=== PATIENT | female | born 1955 | race Caucasian/White ===

== ENCOUNTER → 2016-11-24 | Day surgery (SDC) | payer BC ==
[2016-11-17 13:07] VITALS: BMI 22.0
[~2016-11-24] VITALS: Ht 154.9 cm; Wt 54.5 kg
[~2016-11-24] MED LIST: AZEL0.056 NAE; CALC-440 PO; ESOM1CAP34 PO; ESTR10TA PO; FEXO1TAB54 PO; FRCT/ PO; LEVA45AE INH; LIDOCAINE HCL 2% 2 ML VIAL (20MG/ML) ONE; MIDAZOLAM HCL 1 MG/ML 2ML VIAL ONE; MULT-506 PO; ONDANSETRON INJ 2 MG/ML 2 ML VIAL ONE; PROPOFOL IV EMULSION 10 MG/ML 20 ML VIAL IV ONE; RIZA10TA18 PO; SNG10 PO; SODIUM CHLORIDE 0.9% 500ML 500 ML IV ONE; SYN125 PO; XNX25 PO
[2016-11-24 10:53] VITALS: Ht 154.9 cm; Wt 54.5 kg
[2016-11-24 11:02] VITALS: TEMP 36.6
--- NOTE | 2016-11-24 11:49 | Endo History and Physical ---
History & Physical Date of Service: Nov 24, 2016. Chief Complaint: ESOPHAGEAL REFLUX Referring Physician: DR. HERNANDEZ History of Present Illness 61 yo CF who presents for EGD secondary to GERD. Past Medical History Asthma, Reflux, Thyroid Disease Past Surgical History Hx Cardiac Surgery: No Hx Internal Defibrillator: No Hx Pacemaker: No Hx Abdominal Surgery: Yes (D&C) Hx of Implantable Prosthesis: No Hx Post-Op Nausea and Vomiting: No Hx Cancer Surgery: Yes (SCC REMOVAL FROM BACK) Hx Thoracic Surgery: No Hx Orthopedic: Yes (RT ANKLE SURGERY WITH HARDWARE, RT WRIST DEQUAVARIAN'S TENDON) Hx Urinary Tract Surgery: No Family History Colon CA, Esophogeal CA Social History Smoking Status: Never Smoker Hx Substance Use: No Hx Alcohol Use: Yes (1-2 GLASS WINE/NIGHT) Allergies Coded Allergies: Sulfa Drugs (Verified Allergy, Mild, UNKNOWN - HAPPENED CHILD, 11/24/16) Uncoded Allergies: ENVIRONMENTAL (Allergy, Unknown, ITCHING AND RUNNY NOSE, SNEEZING, 11/17/16) Current Medications Reported Home Medications Medications Dose Route/Sig Max Daily Dose Days Date Category Dose Instructions Levalbuterol Tartrate Hfa (Levalbuterol Tartrate) 45 Mcg/Act Aer 2 Puffs INH Q4H PRN 11/17/16 Reported Azelastine HCl 0.15 % Spr 1 [place] FAISAL HS 11/17/16 Reported Melania Allergy (Fexofenadine Hcl) 60 Mg Tab 1 Tab PO QAM 11/17/16 Reported Calcium Citrate + D3 (Calcium Citrate-Vitamin D) 1 Tab Tab 2 Tabs PO LUNCH 09/26/16 Reported Alprazolam 0.25 Mg Tab 0.25 Mg PO HS 09/26/16 Reported Montelukast Sodium (Montelukast Sod) 10 Mg Tab 10 Mg PO HS 09/26/16 Reported Synthroid (Levothyroxine Sodium) 125 Mcg Tab 125 Mcg PO QAM 09/26/16 Reported Esomeprazole Magnesium 40 Mg Cap 40 Mg PO BID 09/26/16 Reported Fioricet (Acetaminophen/Butalbital/Caffeine) 1 Ea Tab 1-2 Tabs PO UD PRN 09/26/16 Reported TAKE 1 OR 2 TABLETS EVERY 4 HOURS NEEDED FOR HEADACHE. DO NOT EXCEED 6 TABLETS IN 24 HOURS. Vagifem (Estradiol Vaginal) 10 Mcg Tab 10 Mcg PO WK 04/19/13 Reported Maxalt (Rizatriptan Benzoate) 10 Mg Tab 10 Mg PO UD PRN 09/19/10 Reported TAKE 1 TABLET AT ONSET OF MIGRAINE, MAY REPEAT EVERY 2 HOURS NEEDED. MAXIUMUM OF 3 TABLETS IN 24 HOURS. Multivitamin (Multivitamins) Tab 1 Tab PO LUNCH 09/19/10 Reported Vital Signs Weight (Kilograms): 54.55 Height (Feet): 5 Height (Inches): 1 Date Time Temp Pulse Resp B/P Pulse Ox O2 Delivery O2 Flow Rate FiO2 11/24/16 11:02 36.6 60 20 129/74 99 Room Air Physical Exam General Appearance: WD/WN, no apparent distress Respiratory/Chest: Auscultation: breath sounds normal Cardiovascular: Heart Auscultation: RRR Abdomen: Bowel Sounds: normal Inspection & Palpation: soft, non-distended, no tenderness, guarding & rebound Assessment and Plan Assessment: 61 yo CF who presents for EGD secondary to GERD. Plan: Proceed with EGD.
--- NOTE | 2016-11-24 12:04 | Discharge Instructions ---
Endoscopy Patient Instructions Date / Procedure(s) Performed Nov 24, 2016. EGD Allergy Information Coded Allergies: Sulfa Drugs (Verified Allergy, Mild, UNKNOWN - HAPPENED CHILD, 11/24/16) Uncoded Allergies: ENVIRONMENTAL (Allergy, Unknown, ITCHING AND RUNNY NOSE, SNEEZING, 11/17/16) Discharge Date / Findings Nov 24, 2016. Esophageal biopsies Medication Instructions OK to resume all medications today as prescribed. Reported Home Medications Medications Dose Route/Sig Max Daily Dose Days Date Category Dose Instructions Levalbuterol Tartrate Hfa (Levalbuterol Tartrate) 45 Mcg/Act Aer 2 Puffs INH Q4H PRN 11/17/16 Reported Azelastine HCl 0.15 % Spr 1 [place] FAISAL HS 11/17/16 Reported Melania Allergy (Fexofenadine Hcl) 60 Mg Tab 1 Tab PO QAM 11/17/16 Reported Calcium Citrate + D3 (Calcium Citrate-Vitamin D) 1 Tab Tab 2 Tabs PO LUNCH 09/26/16 Reported Alprazolam 0.25 Mg Tab 0.25 Mg PO HS 09/26/16 Reported Montelukast Sodium (Montelukast Sod) 10 Mg Tab 10 Mg PO HS 09/26/16 Reported Synthroid (Levothyroxine Sodium) 125 Mcg Tab 125 Mcg PO QAM 09/26/16 Reported Esomeprazole Magnesium 40 Mg Cap 40 Mg PO BID 09/26/16 Reported Fioricet (Acetaminophen/Butalbital/Caffeine) 1 Ea Tab 1-2 Tabs PO UD PRN 09/26/16 Reported TAKE 1 OR 2 TABLETS EVERY 4 HOURS NEEDED FOR HEADACHE. DO NOT EXCEED 6 TABLETS IN 24 HOURS. Vagifem (Estradiol Vaginal) 10 Mcg Tab 10 Mcg PO WK 04/19/13 Reported Maxalt (Rizatriptan Benzoate) 10 Mg Tab 10 Mg PO UD PRN 09/19/10 Reported TAKE 1 TABLET AT ONSET OF MIGRAINE, MAY REPEAT EVERY 2 HOURS NEEDED. MAXIUMUM OF 3 TABLETS IN 24 HOURS. Multivitamin (Multivitamins) Tab 1 Tab PO LUNCH 09/19/10 Reported Provider Instructions Activity Restrictions - No exercising or heavy lifting for 24 hours. - Do not drink alcohol the day of the procedure. - Do not drive a car or operate machinery until the day after the procedure. - Do not make any important decisions or sign important papers in 24 hours after the procedure. Following Day: - Return to full activity which may include returning to work/school. Diet Start your diet with liquids and light foods (jello, soup, juice, toast). Then eat your usual diet if not nauseated. Treatment For Common After Affects For mild abdominal pain, bloating, or excessive gas: - Rest - Eat lightly - Lie on right side Follow-Up Information Follow-up with DR. HERNANDEZ as scheduled Anesthesia Information What You Should Know You have had a procedure that required some medicine to reduce anxiety and discomfort. This treatment is called moderate sedation. After receiving the treatment, you may be sleepy, but you will be able to breathe on your own. The effects of the treatment may last for several hours. Follow these instructions along with Activity/Diet recommendations noted above: * Do NOT do anything where dizziness or clumsiness would be dangerous. * Rest quietly at home today, then you can be up and about tomorrow. * Have a responsible person stay with you the rest of today. * You may have had an I.V. today. If so, you may take the dressing off later today. Recommendations Call your doctor if: * Trouble breathing * Continuous vomiting for more than 24 hours * Temperature above 101 degrees * Severe abdominal pain or bloating * Pain not relieved by pain medicine ordered * There is increased drainage or redness from any incision * A large amount of rectal bleeding greater than 2-3 tablespoons. (If you had a polyp/s removed or have hemorrhoids, a small amount of blood - from the rectum is to be expected.) * You have any unanswered questions or concerns. IN THE EVENT OF A SERIOUS EMERGENCY, GO TO THE NEAREST EMERGENCY ROOM Your discharge instructions were prepared by provider Stanley Hurt. Patient Instructions Signature Page Akila Alejandra Patient (or Guardian) Signature/Date: I have read and understand the instructions given to me by my caregivers. Caregiver/RN/Doctor Signature/Date: The above-named patient and/or guardian has received patient instructions on this date. + Original Patient Signature Page (only) stays with chart. Please make copy for patient.
--- NOTE | 2016-11-24 12:07 | GI REPORT ---
Procedure Date: 11/24/2016 11:32 AM Procedure: Upper GI endoscopy Indications: Gastro-esophageal reflux disease Medicines: Monitored Anesthesia Care Complications: No immediate complications. Estimated Blood Loss: Estimated blood loss: none. Procedure: Pre-Anesthesia Assessment: - Prior to the procedure, a History and Physical was performed, and patient medications and allergies were reviewed. The patient's tolerance of previous anesthesia was also reviewed. The risks and benefits of the procedure and the sedation options and risks were discussed with the patient. All questions were answered, and informed consent was obtained. Prior Anticoagulants: The patient has taken no previous anticoagulant or antiplatelet agents. ASA Grade Assessment: II - A patient with mild systemic disease. After reviewing the risks and benefits, the patient was deemed in satisfactory condition to undergo the procedure. After obtaining informed consent, the endoscope was passed under direct vision. Throughout the procedure, the patient's blood pressure, pulse, and oxygen saturations were monitored continuously. The On-site loaner was introduced through the mouth, and advanced to the second part of duodenum. The upper GI endoscopy was accomplished without difficulty. The patient tolerated the procedure well. Findings: The Z-line was irregular. Biopsies were taken with a cold forceps for histology. The stomach was normal. The examined duodenum was normal. Impression: - Z-line irregular. Biopsied. - Normal stomach. - Normal examined duodenum. Recommendation: - Resume previous diet. - Continue present medications. - Await pathology results. - Return to primary care physician as previously scheduled. Stanley Hurt DO 11/24/2016 12:07:13 PM This report has been signed electronically. Note Initiated On: 11/24/2016 11:32 AM I attest to the content of the Intraoperative Record and orders documented therein, exceptions below
[2016-11-24 12:31] VITALS: BP 127/77; PULSE 60; O2SAT 98
--- NOTE | 2016-11-24 12:47 | Anesthesiology Progress Note ---
Anesthesia Post Op Note Date & Time Nov 24, 2016 at 12:47 Vital Signs Pain Intensity: 0 Vital Signs Past 12 Hours Date Time Temp Pulse Resp B/P Pulse Ox O2 Delivery O2 Flow Rate FiO2 11/24/16 12:31 60 20 127/77 98 Room Air 11/24/16 12:16 59 20 133/73 97 Room Air 11/24/16 12:01 65 20 104/58 97 Room Air 11/24/16 11:02 36.6 60 20 129/74 99 Room Air Notes Mental Status: alert / awake / arousable, participated in evaluation Pt Amnestic to Procedure: Yes Nausea / Vomiting: adequately controlled Pain: adequately controlled Airway Patency, RR, SpO2: stable & adequate BP & HR: stable & adequate Hydration State: stable & adequate Anesthetic Complications: no major complications apparent
== END | disposition home or self-care (01) ==
LOC: C.GI 10:49
PROVIDERS: ATTEND Internal Medicine
DX: K22.70 Barrett's esophagus without dysplasia (principal); K21.0 Gastro-esophageal reflux disease with esophagitis; J45.909 Unspecified asthma, uncomplicated; E07.9 Disorder of thyroid, unspecified; Z80.0 Family history of malignant neoplasm of digestive organs; Z98.890 Other specified postprocedural states; Z88.2 Allergy status to sulfonamides

== ENCOUNTER → 2016-12-11 | Outpatient (CLI) | payer BC ==
[~2016-12-11] MED LIST changes: -LIDOCAINE HCL 2% 2 ML VIAL (20MG/ML) ONE; -MIDAZOLAM HCL 1 MG/ML 2ML VIAL ONE; -ONDANSETRON INJ 2 MG/ML 2 ML VIAL ONE; -PROPOFOL IV EMULSION 10 MG/ML 20 ML VIAL IV ONE; -SODIUM CHLORIDE 0.9% 500ML 500 ML IV ONE
--- NOTE | 2016-12-12 12:25 | MAMMOGRAPHY REPORT ---
BILATERAL DIGITAL SCREENING MAMMOGRAM TOMOSYNTHESIS WITH CAD: 12/11/2016 CLINICAL HISTORY: Routine screening. Patient has no complaints. TECHNIQUE: Breast tomosynthesis in addition to standard 2D mammography was performed. Current study was also evaluated with a Computer Aided Detection (CAD) system. COMPARISON: Comparison is made to exams dated: 12/01/2015 mammogram, 12/10/2014 mammogram, 11/30/2014 mammogram, 12/10/2014 ultrasound, 11/22/2012 mammogram - [facility], and 11/03/2008. BREAST COMPOSITION: The tissue of both breasts is heterogeneously dense, which may obscure small ma sses. FINDINGS: The parenchymal pattern is unchanged. There are a few stable benign-appearing microcalci fications bilaterally. No developing mass, architectural distortion or cluster of suspicious microc alcifications is seen in either breast. IMPRESSION: ACR BI-RADS CATEGORY 2: BENIGN There is no mammographic evidence of malignancy. A 1 year screening mammogram is recommended. The p atient will receive written notification of the results. Approximately 10% of breast cancers are not detected with mammography. A negative mammographic repor t should not delay biopsy if a clinically suggestive mass is present. Preeti López M.D. ay/:12/11/2016 21:37:42 Product Marketing Director: Alicia MARCIAL)(Patrick)(BD), [facility] letter sent: Normal 1/2 BI-RADS Code: ACR BI-RADS Category 2: Benign
== END | disposition home or self-care (01) ==
LOC: C.MAMM 09:59
PROVIDERS: ATTEND Internal Medicine
DX: Z12.31 Encounter for screening mammogram for malignant neoplasm of breast (principal)

== ENCOUNTER → 2017-01-19 | Outpatient (CLI) | payer BC ==
[2017-01-19 12:21] LABS: BASO % 1.5 %; BASO ABS # 0.05 K/uL (0-0.2); COMPLETE YES; EOS % 3.8 %; HEMATOCRIT 40.4 % (37-47); LYMPH ABS # 1.65 K/uL (1.2-3.4); MEAN CELL VOLUME 87.3 fL (80-100); MEAN CORPUSCULAR HEMOGLOBIN 29.4 pg (25-34); MEAN CORPUSCULAR HGB CONC 33.7 g/dl (32-36); MEAN PLATELET VOLUME 10.1 fL (7.4-10.4); NEUT % 39.7 %; PLATELET COUNT 230 K/uL (130-400); RED BLOOD COUNT 4.63 M/uL (4.2-5.4); WHITE BLOOD COUNT 3.44 K/uL (4.8-10.8)
[2017-01-19 12:41] LABS: ALT/SGPT 23 U/L (12-78); BLOOD UREA NITROGEN 17 mg/dl (7-18); BUN/CREATININE RATIO 19.1 (10-20); CALCIUM 8.8 mg/dl (8.5-10.1); CARBON DIOXIDE 27 mmol/L (21-32); CHLORIDE 103 mmol/L (98-107); CHOLESTEROL 209 mg/dl (0-200); CREATININE 0.88 mg/dl (0.60-1.20); GLUCOSE 67 mg/dl (70-99); POTASSIUM 4.3 mmol/L (3.5-5.1); SODIUM 138 mmol/L (136-145); TRIGLYCERIDES 91 mg/dl (0-150); VERY LOW DENSITY LIPOPROT CALC 18 mg/dl
[2017-01-19 12:52] LABS: ALB/GLOB RATIO 1.1 (0.9-2); ALKALINE PHOSPHATASE 76 U/L (45-117); AST/SGOT 22 U/L (15-37); CHOLESTEROL/HDL RATIO 2.4; HDL CHOLESTEROL 86 mg/dl; LDL CHOLESTEROL CALCULATED 105 mg/dl; THYROID STIMULATING HORMONE 0.152 uIu/ml (0.300-4.500)
== END | disposition home or self-care (01) ==
LOC: C.LAB1850 10:40
PROVIDERS: ATTEND Internal Medicine
DX: M85.80 Other specified disorders of bone density and structure, unspecified site (principal); Z13.220 Encounter for screening for lipoid disorders; E03.9 Hypothyroidism, unspecified

== ENCOUNTER → 2017-01-23 | Outpatient (CLI) | payer BC | END | disposition home or self-care (01) | LOC: C.LAB1850 09:39 | PROVIDERS: ATTEND Internal Medicine | DX: K20.9 Esophagitis, unspecified (principal) ==

== ENCOUNTER → 2017-02-15 | Outpatient (CLI) | payer BC | END | disposition home or self-care (01) | LOC: C.LAB1850 14:13 | PROVIDERS: ATTEND Internal Medicine | DX: E03.9 Hypothyroidism, unspecified (principal) ==

== ENCOUNTER → 2017-07-31 | Outpatient (CLI) | payer BC ==
--- NOTE | 2017-07-31 15:34 | DIAGNOSTIC IMAGING REPORT ---
MRI THE RIGHT SHOULDER NO CONTRAST CLINICAL HISTORY: Right shoulder pain. Weakness. Trauma in February 2017. COMPARISON STUDY: No previous studies for comparison. FINDINGS: Imaging was performed in the axial, sagittal, and coronal planes. There are no areas of marrow edema to indicate occult fracture or bone bruise. No labral tears are visualized. The bicipital tendon appears intact. There is supraspinatus and infraspinatus tendinopathy. There is no evidence of a full-thickness tear. IMPRESSION: 1. Supraspinatus and infraspinatus tendinopathy 2. No evidence of full-thickness rotator cuff tear 3. No evidence of bicipital tendon tear Electronically signed by: Bear Saunders M.D. 07/31/2017 3:32 PM Dictated Date/Time: 07/31/2017 3:29 PM
== END | disposition home or self-care (01) ==
LOC: C.MRIBC 14:33
PROVIDERS: ATTEND Internal Medicine
DX: M25.511 Pain in right shoulder (principal); E03.9 Hypothyroidism, unspecified; M75.91 Shoulder lesion, unspecified, right shoulder

== ENCOUNTER → 2017-10-26 | Outpatient (CLI) | payer OTHER | END | disposition home or self-care (01) | LOC: C.PAPS 16:39 | PROVIDERS: ATTEND Obstetrics & Gynecology | DX: Z01.419 Encounter for gynecological examination (general) (routine) without abnormal findings (principal) ==

== ENCOUNTER → 2017-12-12 | Outpatient (CLI) | payer OTHER ==
--- NOTE | 2017-12-12 15:56 | MAMMOGRAPHY REPORT ---
BILATERAL DIGITAL SCREENING MAMMOGRAM TOMOSYNTHESIS WITH CAD: 12/12/2017 CLINICAL HISTORY: Routine screening. TECHNIQUE: Breast tomosynthesis in addition to standard 2D mammography was performed. Current study was also evaluated with a Computer Aided Detection (CAD) system. COMPARISON: Comparison is made to exams dated: 12/11/2016 mammogram, 12/01/2015 mammogram, 11/30/2014 m ammogram, 11/28/2013 mammogram, 11/22/2012 mammogram, and 11/17/2011 mammogram - [facility] ter. BREAST COMPOSITION: The tissue of both breasts is heterogeneously dense, which may obscure small mas ses. FINDINGS: The parenchymal pattern is unchanged. No developing mass, architectural distortion or clus ter of suspicious microcalcifications is seen in either breast. IMPRESSION: ACR BI-RADS CATEGORY 2: BENIGN There is no mammographic evidence of malignancy. A 1 year screening mammogram is recommended. The pa tient will receive written notification of the results. Approximately 10% of breast cancers are not detected with mammography. A negative mammographic report should not delay biopsy if a clinically suggestive mass is present. Preeti López M.D. ay/:12/12/2017 11:15:15 Tow Mate: Sarah TINOCO(R)(M), [facility] letter sent: Normal 1/2 BI-RADS Code: ACR BI-RADS Category 2: Benign
== END | disposition home or self-care (01) ==
LOC: C.MAMM 09:51
PROVIDERS: ATTEND Obstetrics & Gynecology
DX: Z12.31 Encounter for screening mammogram for malignant neoplasm of breast (principal)